=== PATIENT | male | born 1985 | race Caucasian/White ===

== ENCOUNTER → 2019-08-29 | Outpatient (CLI) | payer OTHER ==
--- NOTE | 2019-08-29 10:19 | FL ---
EXAMINATION TYPE: FL barium swallow DATE OF EXAM: 08/29/2019 CLINICAL HISTORY: Intermittent choking sensation with solid consistencies stuck within the esophagus. One episode of endoscopy to retrieve food product in June 2019. TECHNIQUE: A double contrast esophagram is performed utilizing air and barium. A total of 1.15 thomas walker of fluoroscopic time was utilized during procedure. 38 fluoroscopic images were saved during the examination. COMPARISON: None FINDINGS: The esophagus shows normal motility and emptying into the stomach. No evidence of strictur e noted. Small hiatal hernia and very small distal diverticulum. Mild degree gastroesophageal reflux was seen during real time performance of this study in the supine position without Valsalva maneuver to the level of the distal esophagus. IMPRESSION: 1. No esophageal stricture is seen despite the patient's symptoms. Given the patient's symptoms endos copy is recommended. 2. Very small hiatal hernia and additional tiny distal esophageal diverticulum. 3. Mild gastroesophageal reflux.
== END | disposition home or self-care (01) ==
LOC: RADUSWWP 08:40
PROVIDERS: ATTEND Family Medicine
DX: K21.9 Gastro-esophageal reflux disease without esophagitis (principal); K44.9 Diaphragmatic hernia without obstruction or gangrene; Q39.6 Congenital diverticulum of esophagus
CPT/HCPCS: 74220

== ENCOUNTER 2019-09-26 08:49 | Day surgery (SDC) | payer OTHER ==
[2019-09-24 10:40] VITALS: BMI 31.4
[~2019-09-26 08:49] MED LIST: LACTATED RINGERS 1,000 ML IV SCH
[2019-09-26 09:07] VITALS: TEMP 97.2
[2019-09-26] MEDS ORDERED: LIDOCAINE 1% 20 ML VIAL (10MG/ML) FOR IV START INTRADERMA ONE (09:10)
[2019-09-26] MEDS ORDERED: PROPOFOL 10 MG/ML 20 ML VIAL IV ONE (09:30)
[2019-09-26] MEDS ORDERED: LIDOCAINE 1% INJ 10MG/ML (20 ML MDV) ONE (09:30)
[2019-09-26 10:00] VITALS: RESP 18
--- NOTE | 2019-09-26 10:00 | P.PCN ---
Date of Procedure: 09/26/19 Description of Procedure: BRIEF HISTORY: Patient is a 33-year-old male who presents for outpatient EGD for evaluation of esophageal dysphagia. Patient had an episode requiring hospitalization for foreign body during the summer. Denies any seasonal ALLERGIES or asthma. Currently not on any PPI therapy. PROCEDURE PERFORMED: Esophagogastroduodenoscopy with biopsy. PREOPERATIVE DIAGNOSIS: Dysphagia, esophageal dysphagia, history of esophageal foreign body. ESTIMATED BLOOD LOSS: Minimal. IV sedation per anesthesia. PROCEDURE: After informed consent was obtained, the patient was brought into the endoscopy unit. IV sedation was administered by Anesthesia under continuous monitoring. Initially the Olympus GIF-190 video endoscope was inserted into the mouth. Esophagus intubated without any difficulty. It was gradually advanced into the stomach and duodenum and carefully examined. The bulb and the second part of the duodenum appeared normal, with biopsies taken. The scope at this time was withdrawn to the stomach, adequately insufflated with air, and upon careful e xamination, mucosa of the antrum, body, cardia and the fundus appeared normal, except for some mild scattered erythema in the antrum body suggestive of mild gastritis with biopsies taken. The scope was then withdrawn into the esophagus. The GE junction was located at 39 cm from the incisors, with biopsies taken. The esophagus appeared grossly normal with no esophagitis, masses or strictures, however it felt somewhat tapered in the distal esophagus however the scope was able to easily traversed this area. Biopsies of the midesophagus were taken to rule out eosinophilic esophagitis. There were no erosions or ulcerations seen and the patient tolerated the procedure well. IMPRESSION: 1. No esophageal masses, strictures or esophagitis, however the distal esophagus did feel somewhat narrowed but was able to be easily traversed with the endoscope. 2. Biopsies of the distal and mid esophagus to rule out eosinophilic esophagitis. 3. Mild gastritis antrum body, biopsied. 4. Duodenal biopsies. RECOMMENDATIONS: The findings of this examination were discussed with the patient in his family. Okay to resume diet and medications. At this time patient has been initiated on omeprazole 20 mg twice daily for suspected eosinophilic esophagitis. Await pathology from biopsies. The patient has been encouraged to follow up within the next month for biopsy results and for further description based on symptoms at that time.
[2019-09-26 10:08] VITALS: BP 130/88; PULSE 71
== END 2019-09-26 11:02 | disposition home or self-care (01) ==
LOC: ORWHC2ENDO 08:49
PROVIDERS: ATTEND Internal Medicine
DX: K29.50 Unspecified chronic gastritis without bleeding (principal); K20.9 Esophagitis, unspecified; Z90.89 Acquired absence of other organs
CPT/HCPCS: 88305; 43239; J2001; J2704

== ENCOUNTER → 2024-06-25 | Outpatient (CLI) | payer OTHER | END | disposition home or self-care (01) | LOC: LABPRL 08:29 | PROVIDERS: ATTEND Family Medicine | DX: Z00.00 Encounter for general adult medical examination without abnormal findings (principal) | CPT/HCPCS: 80053; 80061; 82306; 83036; 84443; 85027 ==